=== PATIENT | female | born 1990 | race Caucasian/White ===

== ENCOUNTER 2018-03-01 15:56 | Outpatient (REF) | payer MEDICAID, SELFPAY ==
--- NOTE | 2018-03-01 15:00 | PAPFT_PTH ---
PATIENT: Heather Glez LOC: [facility] U#:[id number] AGE/SX: 27/F ROOM: RE03/01/[address]: SHANON Pandya : 1990 BED: DIS: 03/01/2018 SPEC #: [id number] RECD: 03/02/18 12:59 STATUS: MYRTLE REQ #: [id number] ANDRZEJ: 03/01/18 15:[address]: Sherri Langston DEPT: [facility] Cytology RECD BY: Daniela Morales ENTERED: 03/02/18 12:59 SP TYPE: PAPFT OTHR DR: Unknown,Unknown Tissues: 1 - CX/ENDOCX FOR PAP SMEARS Procedures: PAP THIN PREP/UVM Screening Comments: [id number]
[2018-03-03 14:47] LABS: Chlamydia Result Negative; GC Result Negative; Specimen Description CERVIX
== END 2018-03-01 16:16 ==
LOC: LBN 15:56
PROVIDERS: Visit Provider Nurse Practitioner Family
DX: Z11.3 Encounter for screening for infections with a predominantly sexual mode of transmission (principal); Z12.4 Encounter for screening for malignant neoplasm of cervix
CPT/HCPCS: 87491; 87591; 88142

== ENCOUNTER 2019-02-09 13:33 | Outpatient (REF) | payer OTHER, SELFPAY | END 2019-02-09 13:53 | LOC: NCHCN 13:33 | PROVIDERS: PCP Nurse Practitioner Family; Visit Provider Nurse Practitioner Family | DX: J06.9 Acute upper respiratory infection, unspecified (principal) | CPT/HCPCS: 87070 ==

== ENCOUNTER 2020-05-22 14:20 | Outpatient (REF) | payer OTHER, SELFPAY ==
--- NOTE | 2020-05-22 13:45 | PAPFT_PTH ---
PATIENT: Heather Glez LOC: [facility] U#:[id number] AGE/SX: 29/F ROOM: RE05/22/[address]: SHANON Pandya : 1990 BED: DIS: 05/22/2020 SPEC #: [id number] RECD: 05/22/20 18:14 STATUS: MYRTLE REQ #: [id number] ANDRZEJ: 05/22/20 13:[address]: Sherri Langston DEPT: [facility] Cytology RECD BY: aDniela Morales ENTERED: 05/22/20 18:14 SP TYPE: PAPFT OTHR DR: Raya Morse APRN Tissues: 1 - CX/ENDOCX FOR PAP SMEARS Procedures: PAP THIN PREP/UVM Screening HPV DNA PROBE Comments: [id number]
== END 2020-05-22 14:40 ==
LOC: LBN 14:20
PROVIDERS: PCP Nurse Practitioner; Visit Provider Nurse Practitioner Family
DX: Z12.4 Encounter for screening for malignant neoplasm of cervix (principal); Z11.51 Encounter for screening for human papillomavirus (HPV)
CPT/HCPCS: 88142; 87624

== ENCOUNTER 2020-05-23 02:50 | Outpatient (CLI) | payer OTHER, SELFPAY ==
[2020-05-27 14:35] LABS: Syphilis Total Ab w/Reflex Reactive (Nonreactive)
[2020-05-28 10:20] LABS: RPR Screen w/Reflex Nonreactive (Nonreactive)
[2020-05-28 15:02] LABS: Syphilis Ab, TP-PA Positive (Negative)
== END 2020-05-23 03:10 ==
PROVIDERS: PCP Nurse Practitioner; Visit Provider Nurse Practitioner Family
DX: Z11.3 Encounter for screening for infections with a predominantly sexual mode of transmission (principal)
CPT/HCPCS: 0064U; 36415; 86780

== ENCOUNTER 2020-07-06 19:47 | Outpatient (REF) | payer OTHER, SELFPAY ==
[2020-07-08 15:30] LABS: COVID-19 RT-PCR UVMMC Result Negative (Negative)
== END 2020-07-06 19:48 | disposition home or self-care (01) ==
LOC: LBN 19:47
PROVIDERS: PCP Nurse Practitioner; Visit Provider Nurse Practitioner Adult Health
DX: Z20.822 Contact with and (suspected) exposure to COVID-19 (principal)
CPT/HCPCS: U0003

== ENCOUNTER 2021-01-15 14:19 | Outpatient (CLI) | payer MEDICAID, SELFPAY ==
--- NOTE | 2021-01-15 14:15 | RT.EKG_ITS ---
APPROVED REPORT Exam: Resting ECG Reason for Exam: chronic stimulants Patient Location: O HR:102 bpm ECG Measurements Heart Rate 102 AXIS AK 146 P 54 QRSd 72 QRS 73 QT 334 T 32 QTc 436 Conclusion Sinus tachycardia...rate> 99 Normal Electrocardiogram
== END 2021-01-15 14:20 | disposition home or self-care (01) ==
LOC: DI.KIM 14:20
PROVIDERS: PCP Nurse Practitioner; Visit Provider Nurse Practitioner
DX: F11.20 Opioid dependence, uncomplicated (principal); F17.210 Nicotine dependence, cigarettes, uncomplicated; F98.8 Other specified behavioral and emotional disorders with onset usually occurring in childhood and adolescence

== ENCOUNTER 2021-03-15 02:13 | Outpatient (CLI) | payer MEDICAID, SELFPAY ==
[2021-03-15 12:09] LABS: HCT 43.4 % (36.0-46.0); HGB 14.6 g/dL (11.2-15.7); MCH 32.4 pg (27.0-33.0); MCHC 33.6 % (32.0-36.0); MCV 96.4 fL (80-95); MPV 7.9 fL (8.0-11.0); Platelet Count 345 10^3/uL (130-400); RDW 12.4 % (11.7-14.6); RDW-SD 43.9 fL; WBC 10.13 10^3/uL (4.4-10.8)
[2021-03-15 13:07] LABS: ALT 25 U/L (14-59); AST 12 U/L (15-37); Albumin 4.1 g/dL (3.4-5.0); Alkaline Phosphatase 62 U/L (46-116); Anion Gap 9.9 mmol/L (3-11); BUN 13 mg/dL (7-18); Bilirubin, Total 0.5 mg/dL (0.2-1.0); CO2 29.1 mmol/L (21.0-32.0); Calcium 9.4 mg/dL (8.5-10.1); Calculated LDL 69 mg/dL (<100); Chloride 102 mmol/L (98-107); Cholesterol 177 mg/dL (<200); Glucose 90 mg/dL (74-106); HDL Cholesterol 93 mg/dL (40-60); Potassium 3.9 mmol/L (3.5-5.1); Sodium 141 mmol/L (136-145); Total Protein 7.4 g/dL (6.4-8.2); Triglyceride 76 mg/dL (<150)
== END 2021-03-15 02:14 | disposition home or self-care (01) ==
LOC: LBO 02:13
PROVIDERS: PCP Nurse Practitioner; Visit Provider Nurse Practitioner
DX: F98.8 Other specified behavioral and emotional disorders with onset usually occurring in childhood and adolescence (principal); Z86.19 Personal history of other infectious and parasitic diseases; Z13.220 Encounter for screening for lipoid disorders
CPT/HCPCS: 36415; 80053; 80061; 85027

== ENCOUNTER 2022-06-10 13:01 | Outpatient (CLI) | payer MEDICAID, SELFPAY ==
--- NOTE | 2022-06-10 13:00 | RT.EKG_ITS ---
APPROVED REPORT Exam: Resting ECG Reason for Exam: pt on adderall Patient Location: O HR:90 bpm ECG Measurements Heart Rate 90 AXIS UT 165 P 76 QRSd 77 QRS 78 QT 340 T 43 QTc 416 Conclusion Sinus rhythm...normal P axis, V-rate 50- 99 Normal Electrocardiogram
== END 2022-06-10 13:02 | disposition home or self-care (01) ==
LOC: DI.KIM 13:02
PROVIDERS: PCP Nurse Practitioner; Visit Provider Nurse Practitioner
DX: Z51.81 Encounter for therapeutic drug level monitoring (principal)
CPT/HCPCS: 93010

== ENCOUNTER 2022-07-17 12:43 | Outpatient (CLI) | payer MEDICAID, SELFPAY ==
--- NOTE | 2022-07-17 11:45 | DI.US_ITS ---
Exam(s) US OB 1ST TRIMESTER EXAM: US OB 1ST TRIMESTER CLINICAL HISTORY: pelvic pain, R10.2. COMPARISON: No exams were available for comparison TECHNIQUE: Transabdominal Transvaginal first trimester obstetrical ultrasound performed. FINDINGS: There is a round fluid collection seen within the endometrial canal which may represent a gestational sac. It measures 7 mm. This is too small/too early for dating measurements. The uterus measures 10.3 long by 4.3 AP by 4.9 transverse cm. There does appear to be a 2 x 1.9 x 1. 7 cm uterine fibroid present. The ovaries were not visualized on this examination. No suspicious adnexal masses are seen. The right lower quadrant was evaluated sonographically. No sonographic evidence of an appendicitis i s seen. IMPRESSION: 1. 7 mm fluid collection in the within the endometrial canal which may represent a very early pregnan cy. This is too small/too early for dating measurements. Follow-up ultrasound and beta HCG levels i s recommended to evaluate for viable . 2. No sonographic evidence of an appendicitis. DATA REPOSITORY:
[2022-07-17 13:46] LABS: HCG Quant, Pregnancy 3256 mIU/mL (1-3)
== END 2022-07-17 12:44 | disposition home or self-care (01) ==
LOC: LBO 12:44
PROVIDERS: PCP Nurse Practitioner; Visit Provider Advanced Practice Midwife
DX: R10.2 Pelvic and perineal pain (principal); D25.9 Leiomyoma of uterus, unspecified; O26.891 Other specified pregnancy related conditions, first trimester; Z3A.01 Less than 8 weeks gestation of pregnancy
CPT/HCPCS: 36415; 86850; 86900; 86901; 76801; 84702

== ENCOUNTER 2022-07-21 02:58 | Outpatient (CLI) | payer MEDICAID, SELFPAY ==
[2022-07-21 11:29] LABS: HCG Quant, Pregnancy 10710 mIU/mL (1-3)
== END 2022-07-21 02:59 | disposition home or self-care (01) ==
LOC: LBO 02:58
PROVIDERS: Advanced Practice Midwife; PCP Nurse Practitioner; Visit Provider Advanced Practice Midwife
DX: R10.2 Pelvic and perineal pain (principal); Z34.91 Encounter for supervision of normal pregnancy, unspecified, first trimester
CPT/HCPCS: 36415; 84702

== ENCOUNTER 2022-09-01 01:52 | Outpatient (CLI) | payer MEDICAID, SELFPAY ==
[2022-09-01 11:58] LABS: Panorama Kit Sent via Fed Ex
[2022-09-01 12:07] LABS: Abs Immature Grans 0.05 10^3/uL (0.0-0.06); Absolute Basophil Count 0.08 10^3/uL (0.0-0.2); Absolute Eosinophil Count 0.29 10^3/uL (0.0-0.7); Absolute Monocyte Count 0.48 10^3/uL (0.1-0.8); Basophils % 0.6; Eosinophils % 2.3; HCT 39.2 % (36.0-46.0); HGB 13.5 g/dL (11.2-15.7); Immature Grans % 0.4; Lymphocytes % 20.5; MCH 31.9 pg (27.0-33.0); MCHC 34.4 % (32.0-36.0); MCV 93 fL (80-95); MPV 7.7 fL (8.0-11.0); Monocytes % 3.8; Neutrophils % 72.4; Platelet Count 344 10^3/uL (130-400); RBC 4.23 10^6/uL (3.93-5.22); RDW 13.3 % (11.7-14.6); RDW-SD 45.4 fL; WBC 12.56 10^3/uL (4.4-10.8)
[2022-09-01 12:08] LABS: Absolute Lymphocyte Count 2.57 10^3/uL (1.2-3.4); Absolute Neutrophil Count 9.09 10^3/uL (1.2-6.7)
[2022-09-01 12:46] LABS: Glucose,1 Hr (Glucola) 115 mg/dL (80-140)
[2022-09-02 09:11] LABS: HIV-1/2 Ag & Ab Screen Negative (Negative)
[2022-09-02 09:19] LABS: Hepatitis B Surface Ag Negative (Negative)
[2022-09-02 10:21] LABS: Hepatitis C Ab w Rflx HCV PCR Reactive (Negative)
[2022-09-02 11:44] LABS: Rubella IgG Ab (UVM) Positive (See Note)
[2022-09-03 11:16] LABS: HCV RNA Qualitative Undetected (Undetected)
[2022-09-03 12:54] LABS: Syphilis IgG w/Reflex Reactive (Nonreactive)
[2022-09-04 11:57] LABS: RPR Screen w/Reflex Negative (Negative)
[2022-09-04 16:58] LABS: Syphilis Ab, TP-PA Positive (Negative)
[2022-09-09 16:24] LABS: Result Summary NEGATIVE; Specimen WB Whole Blood
== END 2022-09-01 01:53 | disposition home or self-care (01) ==
LOC: LBO 01:52
PROVIDERS: Advanced Practice Midwife; PCP Nurse Practitioner; Visit Provider Advanced Practice Midwife
DX: Z34.91 Encounter for supervision of normal pregnancy, unspecified, first trimester (principal)
CPT/HCPCS: 0064U; 36415; 81220; 81222; 82950; 86780; 86803; 86850; 86900; 86901; 87340; 87389; 87522; 85025; 86762

== ENCOUNTER 2022-09-01 12:35 | Outpatient (REF) | payer MEDICAID, SELFPAY ==
[2022-09-01 13:31] LABS: *AMPHETAMINES SCREEN URINE Negative (Negative); *BARBITURATES SCREEN URINE Negative (Negative); *BENZODIAZEPINES SCREEN URINE Negative (Negative); Cannabinoids THC Positive (Negative); Cocaine Screen,Urine Negative (Negative); METHADONE URINE SCREEN Negative (Negative); OPIATES URINE SCREEN Negative (Negative)
[2022-09-01 13:33] LABS: Tricyclic Antidepressants Negative (Negative)
[2022-09-02 13:41] LABS: Chlamydia Result Negative (Negative); GC Result Negative (Negative)
[2022-09-06 13:58] LABS: Buprenorphine 14.6 ng/mL (Cutoff: 5.0); Norbuprenorphine 70.3 ng/mL (Cutoff: 2.5)
== END 2022-09-01 12:36 | disposition home or self-care (01) ==
LOC: LBN 12:35
PROVIDERS: PCP Nurse Practitioner; Visit Provider Advanced Practice Midwife
DX: Z34.90 Encounter for supervision of normal pregnancy, unspecified, unspecified trimester (principal)
CPT/HCPCS: 80307; 80348; 87491; 87591; 87086

== ENCOUNTER 2022-11-04 01:18 | Outpatient (CLI) | payer MEDICAID, SELFPAY ==
--- NOTE | 2022-11-04 07:00 | DI.US_ITS ---
Exam(s) US OB 2-3 TRIMESTER EXAM: US OB 2-3 TRIMESTER CLINICAL HISTORY: anatomy,z34.90. TECHNIQUE: Transabdominal obstetrical ultrasound was performed. COMPARISON: US POCUS EXAM from 08/07/2022 FINDINGS: There is a single viable intrauterine gestation with cardiac activity identified-154 bpm. Amniotic fluid: There is a normal amount of amniotic fluid. Placental location: The placenta is posterior fundal, grade 1,with no evidence of placenta previa.Dis tance from tip of placenta to the internal cervical os is 5 cm on today's study. ANATOMY: Fetus exhibited variable position during today's study. A 3 vessel umbilical cord is seen. There are no obvious abnormalities of the spinal column evident. There is no obvious abnormal ity of the anterior abdominal wall. stomach and urinary bladder are identified and there is no evidence of hydronephrosis. No abnormalities of the upper lip region are identified. No evidence of choroid plexus cysts i n the brain. Apparently not able to obtain adequate cardiac images on today's study. Dating parameters place this at approximately 20 weeks and 4 days gestational age. BPD measures 20 weeks and 0 days HC measures 20 weeks and 3 days AC measures 21 weeks and 0 days FL measures 20 weeks and 6 days Estimated weight is 381 gm-0 pounds, 13 ounces. Fetus is at the 28th percentile on the Hadlock scale. IMPRESSION:: Single viable intrauterine gestation which is approximately 20 weeks and 4 days gestati onal age, implying an VIKY of March 20, 2023. There are no obvious anomalies evident on today's study. The placenta is posterior fundal with no evidence of placenta previa. There is a normal amount of amniotic fluid. Patient is returning on 11/07/2022 for repeat imaging to complete the survey study DATA REPOSITORY:
== END 2022-11-04 01:38 ==
LOC: DI 01:18
PROVIDERS: PCP Nurse Practitioner; Visit Provider Obstetrics & Gynecology
DX: Z34.92 Encounter for supervision of normal pregnancy, unspecified, second trimester (principal)
CPT/HCPCS: 76805

== ENCOUNTER 2022-11-12 01:54 | Outpatient (CLI) | payer MEDICAID, SELFPAY ==
--- NOTE | 2022-11-12 | DI.US_ITS ---
Exam(s) US OB F/U FACIAL/LVOT/RVOT EXAM: US OB F/U FACIAL/LVOT/RVOT CLINICAL HISTORY: F/U SURVEY, RVOT/LVOT/4 CH HEART/DORSIFLEX LOW EXT, VENTRICLE. TECHNIQUE: Transabdominal obstetrical ultrasound performed. COMPARISON: US US OB 2-3 TRIMESTER from 11/04/2022 FINDINGS: Number of fetuses: 1 position: VARIED Placental location: POSTERIOR No evidence of previa. survey: The four-chamber heart, left ventricular and right ventricular outflow tracts were all visualized and are unremarkable. The right and left tibias and fibula were visualized and are unrema rkable. Heart Rate: 149 bpm IMPRESSION: 1. Single live intrauterine gestation as above. 2. The four-chamber heart, left and right ventricular outflow tracks revision lies and are unremarkab le. 3. Both the right and left tibia and fibula were visualized and are unremarkable. 4. This completes the anatomic survey. DATA REPOSITORY:
== END 2022-11-12 02:14 ==
LOC: DI 01:54
PROVIDERS: PCP Nurse Practitioner; Visit Provider Obstetrics & Gynecology
DX: Z34.92 Encounter for supervision of normal pregnancy, unspecified, second trimester (principal)
CPT/HCPCS: 76815

== ENCOUNTER 2022-12-22 02:37 | Outpatient (CLI) | payer MEDICAID, SELFPAY ==
[2022-12-22 09:31] LABS: HCT 33.3 % (36.0-46.0); HGB 11.6 g/dL (11.2-15.7); MCH 32.9 pg (27.0-33.0); MCHC 34.8 % (32.0-36.0); MCV 94 fL (80-95); MPV 7.6 fL (8.0-11.0); Platelet Count 257 10^3/uL (130-400); RBC 3.53 10^6/uL (3.93-5.22); RDW 13.6 % (11.7-14.6); RDW-SD 46.9 fL; WBC 13.78 10^3/uL (4.4-10.8)
[2022-12-22 09:43] LABS: Glucose,1 Hr (Glucola) 161 mg/dL (80-140)
[2022-12-22 10:20] LABS: ALT 17 U/L (14-59); AST 11 U/L (15-37); Albumin 2.4 g/dL (3.4-5.0); Alkaline Phosphatase 74 U/L (46-116); Anion Gap 7.2 mmol/L (3-11); BUN 5 mg/dL (7-18); Bilirubin, Total 0.2 mg/dL (0.2-1.0); CO2 26.8 mmol/L (21.0-32.0); CREATININE 0.7 mg/dL (0.55-1.02); Calcium 8.4 mg/dL (8.5-10.1); Chloride 102 mmol/L (98-107); Estimated GFR 117.77 (mL/min/1.73m2); Glucose 145 mg/dL (74-106); Potassium 3.1 mmol/L (3.5-5.1); Sodium 136 mmol/L (136-145); Total Protein 5.9 g/dL (6.4-8.2)
== END 2022-12-22 02:38 | disposition home or self-care (01) ==
LOC: LBO 02:37
PROVIDERS: PCP Nurse Practitioner; Visit Provider Obstetrics & Gynecology Gynecology
DX: Z34.93 Encounter for supervision of normal pregnancy, unspecified, third trimester (principal); R76.8 Other specified abnormal immunological findings in serum
CPT/HCPCS: 36415; 80053; 82950; 85027

== ENCOUNTER 2022-12-31 02:39 | Outpatient (CLI) | payer MEDICAID, SELFPAY ==
[2022-12-31 09:10] LABS: Glucose 1 Hour 148 mg/dL
[2022-12-31 11:06] LABS: Glucose 3 Hour 91 mg/dL
== END 2022-12-31 02:40 | disposition home or self-care (01) ==
LOC: LBO 02:39
PROVIDERS: PCP Nurse Practitioner; Visit Provider Obstetrics & Gynecology Gynecology
DX: R73.09 Other abnormal glucose (principal)
CPT/HCPCS: 36415; 82951

== ENCOUNTER 2023-01-09 15:08 | Observation (INO) | payer MEDICAID, SELFPAY ==
[2023-01-09 15:35] VITALS: BP 108/67; PULSE 64; TEMP 36.4
[2023-01-09 15:53] LABS: HGB 12.2 g/dL (11.2-15.7); MCH 32.2 pg (27.0-33.0); MCHC 33.9 % (32.0-36.0); MCV 95 fL (80-95); MPV 7.7 fL (8.0-11.0); Platelet Count 283 10^3/uL (130-400); RBC 3.79 10^6/uL (3.93-5.22); RDW 13.4 % (11.7-14.6); RDW-SD 46.3 fL; WBC 11.74 10^3/uL (4.4-10.8)
[2023-01-09 16:01] VITALS: TEMP 36.4
[2023-01-09] MEDS: Calcium Carbonate *TUMS* 500 MG CHEW 1000 MG PO (16:01)
[2023-01-09 16:05] VITALS: BP 108/85; PULSE 64; RESP 22; TEMP 36.4; O2SAT 98
[2023-01-09 16:08] VITALS: BP 108/55; PULSE 65
[2023-01-09 16:47] LABS: ALT 117 U/L (14-59); AST 117 U/L (15-37); Albumin 2.6 g/dL (3.4-5.0); Alkaline Phosphatase 115 U/L (46-116); Anion Gap 7.5 mmol/L (3-11); BUN 6 mg/dL (7-18); Bilirubin, Total 1.1 mg/dL (0.2-1.0); CO2 29.5 mmol/L (21.0-32.0); CREATININE 0.6 mg/dL (0.55-1.02); Calcium 9.4 mg/dL (8.5-10.1); Chloride 102 mmol/L (98-107); Estimated GFR 121.47 (mL/min/1.73m2); Glucose 111 mg/dL (74-106); Potassium 4.1 mmol/L (3.5-5.1); Sodium 139 mmol/L (136-145); Total Protein 6.5 g/dL (6.4-8.2); Uric Acid 3.5 mg/dL (2.6-6.0)
[2023-01-09 16:58] LABS: COMMENT (LAB VIEW ONLY) 95.31 mg/dL; Prot/Crea Ur Ratio 0.19
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
[2023-01-09 18:10] LABS: Lab Add On Test DONE
[2023-01-09 18:18] LABS: Amylase 44 U/L (25-115); Lipase 37 U/L (16-77)
== END 2023-01-09 17:10 | disposition home or self-care (01) ==
LOC: OBS 15:28 → BCD 01-12 12:23
PROVIDERS: Admitting Provider Obstetrics & Gynecology Gynecology; PCP Nurse Practitioner; Visit Provider Obstetrics & Gynecology Gynecology
DX: O26.893 Other specified pregnancy related conditions, third trimester (principal); R10.9 Unspecified abdominal pain; R79.89 Other specified abnormal findings of blood chemistry; Z3A.30 30 weeks gestation of pregnancy; O99.323 Drug use complicating pregnancy, third trimester; F11.90 Opioid use, unspecified, uncomplicated; O99.343 Other mental disorders complicating pregnancy, third trimester; F99 Mental disorder, not otherwise specified; O34.211 Maternal care for low transverse scar from previous cesarean delivery; N85.8 Other specified noninflammatory disorders of uterus; F41.8 Other specified anxiety disorders; G56.03 Carpal tunnel syndrome, bilateral upper limbs; O99.353 Diseases of the nervous system complicating pregnancy, third trimester; B19.20 Unspecified viral hepatitis C without hepatic coma; O98.413 Viral hepatitis complicating pregnancy, third trimester; O99.283 Endocrine, nutritional and metabolic diseases complicating pregnancy, third trimester; E28.2 Polycystic ovarian syndrome; O99.513 Diseases of the respiratory system complicating pregnancy, third trimester; J45.909 Unspecified asthma, uncomplicated; O99.333 Smoking (tobacco) complicating pregnancy, third trimester; F17.210 Nicotine dependence, cigarettes, uncomplicated
CPT/HCPCS: 80053; 83690; 85027; 86850; 86900; 86901; 82150; 82565; 84156; 84550; G0378

== ENCOUNTER 2023-01-15 04:06 | Outpatient (CLI) | payer MEDICAID, SELFPAY ==
[2023-01-15 15:12] LABS: HCT 35.7 % (36.0-46.0); HGB 12.2 g/dL (11.2-15.7); MCH 32.5 pg (27.0-33.0); MCHC 34.2 % (32.0-36.0); MCV 95 fL (80-95); MPV 7.7 fL (8.0-11.0); Platelet Count 263 10^3/uL (130-400); RBC 3.75 10^6/uL (3.93-5.22); RDW 13.3 % (11.7-14.6); RDW-SD 46.3 fL; WBC 11.43 10^3/uL (4.4-10.8)
[2023-01-15 15:44] LABS: ALT 77 U/L (14-59); AST 24 U/L (15-37); Albumin 2.6 g/dL (3.4-5.0); Alkaline Phosphatase 112 U/L (46-116); Anion Gap 9.5 mmol/L (3-11); BUN 5 mg/dL (7-18); Bilirubin, Total 0.3 mg/dL (0.2-1.0); CO2 26.5 mmol/L (21.0-32.0); CREATININE 0.7 mg/dL (0.55-1.02); Calcium 8.7 mg/dL (8.5-10.1); Chloride 100 mmol/L (98-107); Estimated GFR 117.04 (mL/min/1.73m2); Glucose 90 mg/dL (74-106); Potassium 3.6 mmol/L (3.5-5.1); Sodium 136 mmol/L (136-145); Total Protein 6.4 g/dL (6.4-8.2)
== END 2023-01-15 04:07 | disposition home or self-care (01) ==
LOC: LBO 04:07
PROVIDERS: PCP Nurse Practitioner; Visit Provider Obstetrics & Gynecology Gynecology
DX: O26.893 Other specified pregnancy related conditions, third trimester (principal); R10.9 Unspecified abdominal pain; R79.89 Other specified abnormal findings of blood chemistry; Z3A.31 31 weeks gestation of pregnancy
CPT/HCPCS: 36415; 80053; 85027

== ENCOUNTER 2023-02-16 10:35 | Outpatient (REF) | payer MEDICAID, SELFPAY ==
[2023-02-16 12:00] LABS: *AMPHETAMINES SCREEN URINE Positive (Negative); *BARBITURATES SCREEN URINE Negative (Negative); *BENZODIAZEPINES SCREEN URINE Negative (Negative); Cannabinoids THC Positive (Negative); Cocaine Screen,Urine Negative (Negative); METHADONE URINE SCREEN Negative (Negative); OPIATES URINE SCREEN Negative (Negative); Tricyclic Antidepressants Negative (Negative)
[2023-02-20 13:55] LABS: Buprenorphine 19.7 ng/mL (Cutoff: 5.0); Norbuprenorphine 212.9 ng/mL (Cutoff: 2.5)
== END 2023-02-16 10:36 | disposition home or self-care (01) ==
LOC: LBN 10:35
PROVIDERS: PCP Nurse Practitioner; Visit Provider Obstetrics & Gynecology
DX: Z34.93 Encounter for supervision of normal pregnancy, unspecified, third trimester (principal); Z36.85 Encounter for antenatal screening for Streptococcus B; Z3A.36 36 weeks gestation of pregnancy
CPT/HCPCS: 80307; 80348; 87081

== ENCOUNTER 2023-03-04 21:12 | Inpatient (IN) | payer MEDICAID, SELFPAY ==
[2023-03-04 21:35] VITALS: BP 102/67; PULSE 100
[2023-03-04] MEDS: Lactated Ringers 1,000 ML 200 ML IV (21:59)
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
[2023-03-04] MEDS: AZITHROMYCIN 500 MG in Normal Saline 250 ML 250 MG IVPB (22:21)
[2023-03-04 22:23] VITALS: TEMP 36.8
[2023-03-04 22:24] LABS: Source Nasal/Nares
[2023-03-04 22:25] LABS: HCT 39.3 % (36.0-46.0); HGB 13.5 g/dL (11.2-15.7); MCH 32.4 pg (27.0-33.0); MCHC 34.4 % (32.0-36.0); MCV 94 fL (80-95); MPV 8.1 fL (8.0-11.0); Platelet Count 273 10^3/uL (130-400); RBC 4.17 10^6/uL (3.93-5.22); RDW 14.2 % (11.7-14.6); WBC 18.35 10^3/uL (4.4-10.8)
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
[2023-03-04] MEDS: Ondansetron 4 MG/2 ML VIAL (22:41)
[2023-03-04 22:59] LABS: COVID-19 PCR Negative (Negative)
[2023-03-04] MEDS: ceFAZolin 2 GM/50 ML BAG IVPB (23:07)
--- NOTE | 2023-03-04 23:28 | PLAC_PTH ---
PATIENT: Heather Glez LOC: OBS U#:[id number] AGE/SX: 32/F ROOM: OBS.304 RE03/05/[address]: Bev Alexander DO : 1990 BED: A DIS: 03/07/2023 SPEC #: [id number] RECD: 03/05/23 12:42 STATUS: MYRTLE REQ #: [id number] ANDRZEJ: 03/04/23 23:[address]: Bev Alexander DEPT: Surgical Specimen RECD BY: Daniela Morales ENTERED: 03/05/23 12:43 SP TYPE: PLAC OTHR DR: Raya Morse APRN Tissues: 1 - PLACENTA (3RD TRIMESTER) 2 - FALLOPIAN TUBE (STERILIZATION) 3 - FALLOPIAN TUBE (STERILIZATION) Procedures: GROSS AND MICRO LEVEL 2 GROSS AND MICRO LEVEL 5 Comments: [id number]
[2023-03-04] MEDS: Tranexamic Acid 1,000 MG/10 ML VIAL 1000 MG (23:36)
[2023-03-05] VITALS (47 sets, daily range): BP systolic 86–148; BP diastolic 47–91; PULSE 62–93; RESP 13–18; TEMP 36.4–37.2; O2SAT 93–100
--- NOTE | 2023-03-05 00:28 | PDOC.OPNB_ITS ---
Date of service: 03/05/23 Time of Service: 00:28 Operative Note Operative Note Delivery Method: Unscheduled STAT: No and Repeat Previous LT Incision: Yes DATE OF PROCEDURE: 03/05/23 PRE-OP DIAGNOSES: 38 4/7, prior c/s, undesired fertility, labor POST-OP DIAGNOSES: same (Delivery of a viable female ) PROCEDURE: Repeat low-transverse section with bilateral salpingectomy SURGEON: Bev Alexander [employer] Developing Machine Operator: Galen Rodriguez Anesthesia: GETA and spinal Estimated blood loss (mL): 800 Pathology: other (1. Placenta 2. Left fallopian tube 3. Right fallopian tube 4. Cord blood gases 5. Cord blood sample 6. Umbilical cord for toxicology) Complications: None Patient was transported to: PACU Patient's condition: stable Indications: at 38-4/7 weeks gestation, prior section, Active labor Findings: Normal-appearing uterus, fallopian tubes, ovaries. Delivery of a viable female . Meconium stained fluid. Procedure Description: Patient presented to the center in early active labor kamran approximately every 3 minutes. She was noted at that time to be 1 cm and 70% effaced. With her amount of discomfort, regular contractions, and cervical exam, the decision was made to proceed to the OR for her repeat section. This was previously scheduled shortly after 39 weeks. Full informed consent was obtained for her repeat section, and bilateral salpingectomy. She was taken the operating suite with an IV running where she was placed in the seated position. Spinal anesthesia was administered and she was placed in the dorsal supine position with leftward tilt. With testing of her spinal, she had no pain relief. In light of this, she underwent general anesthesia via endotracheal intubation. When patient was appropriately anesthetized, Pfannenstiel skin incision was made carried down to the underlying fascia which was nicked in the midline and fascial incision extended laterally. The rectus muscles were split in the midline and peritoneum identified and entered. There was noted to be adhesions of the omentum to the anterior abdominal wall which were bluntly dissected away. The abdominal incision was extended bluntly and the bladder blade inserted. Scalpel was used to incise the lower uterine segment and extended bluntly laterally. There was artificial rupture of membranes for heavily meconium stained fluid. The vertex was delivered through the incision without difficulty. There was no evidence of nuchal cord. Shoulders followed with ease. Three-vessel cord was noted clamped x2 and the female was handed off to the waiting boom worker. At this point cord blood sample and cord blood gases were obtained. A portion of the cord will be sent for toxicology. The placenta delivered spontaneously and was noted to be intact. At this point the uterus was exteriorized and cleared of all clot and debris. There was a modest amount of uterine a tonicity. Patient received Pitocin intravenously, and 10 units of Pitocin IM directly into the uterus. She also received 1 dose of TXA. The uterus was then firm and uterine incision was closed using 0 Monocryl suture in a running locked fashion followed by a second layer of imbricating stitch. The uterine incision was inspected and noted to be hemostatic. Attention was turned to the right fallopian tube which was elevated and cautery transected from the fimbriated end to the implantation of the uterus. A similar procedure was carried out on the left fallopian tube. Pedicles were noted to be hemostatic. At this point the uterus was returned to the abdomen and the abdomen irrigated with copious amounts of normal saline. The uterine incision was then inspected and noted to be hemostatic. All surfaces and peritoneal edges were inspected and hemostatic. At this point the fascial incision was closed using 0 Vicryl suture in a running fashion. Subcutaneous tissue was irrigated with copious amounts of normal saline. All small vessels that were not hemostatic were cauterized and hemostatic. 3-0 Vicryl used to reapproximate the subcutaneous space in a simple interrupted fashion. The skin edge was then reapproximated with 4-0 undyed Monocryl. Mepilex dressing was placed. Patient awoke from anesthesia without difficulty. She was taken to the postanesthesia care unit in stable condition with a Lucio catheter draining barbie r yellow urine. Complications: None apparent Findings: Delivery of a viable female infant. Meconium stained fluid. Normal- appearing tubes, ovaries, uterus. EBL: 800 mL Fluids: Crystalloid per anesthesia Pathology: 1. Placenta 2. Left fallopian tube 3. Right fallopian tube 4. Cord blood gases 5. Cord blood sample 6. Umbilical cord for toxicology [place] Infant Gender: Male
[2023-03-05] MEDS: HYDROmorphone 2 MG/ML SYR IVP ×2 (00:47→00:59)
--- NOTE | 2023-03-05 01:08 | W.ANESPOSTOP ---
Postoperative Evaluation Date, Time and Location Date Performed: 03/05/23 Time Performed: 01:09 Patient Location: PACU Vital Signs Most Recent Imported Vital Signs: Most Recent Vital Signs Temp Pulse Resp BP Pulse Ox 36.5 C 62 15 91/63 L 98 03/05/23 00:52 03/05/23 00:52 03/05/23 00:52 03/05/23 00:52 03/05/23 00:52 Pain Score Most Recent Pain Score: Most Recent Pain Score Pain Level 6 03/05/23 00:52 Assessment Mental Status: Awake (Alert & Oriented to Patient Baseline) Airway and Respiratory Function: Patent airway with normal (patient baseline) respiratory exam (Dry intermittently productive cough) Cardiovascular Function: Hemodynamically Stable Hydration Status: Adequately Hydrated Nausea & Vomiting: No Nausea or Vomiting Pain: Pain is tolerable per patient (6/10 when coughing, better when bracing with pillow, better now that pain addressed with dilaudid. ) Peripheral Nerve Block: Patient did not receive a nerve block Postoperative Comments:: Patient with full CMS in BLE. Tonight was patients second failed spinal. Tonighs spinal was straightforward and routine with good CSF flow both for swirl pre and post injection. Minimal sensory loss which then returned, no motor. I did discuss future spinals with the patient and cautioned that they might not be the optimal anesthetic plan for her. I did discuss that I would note this conversation in this record.
[2023-03-05] MEDS: Ketorolac 30 MG/ML VIAL IVP ×4 (01:38→20:31)
[2023-03-05] MEDS: diphenhydrAMINE 50 MG/ML VIAL 25 MG IVP (02:34)
[2023-03-05] MEDS: oxyCODONE 5 mg/Acetaminophen 325 mg TAB PO (03:52)
[2023-03-05] MEDS: Normal Saline Flush 10 ML SYR IVP ×2 (08:45→13:55)
[2023-03-05] MEDS: Amphet Asp/Amphet/D-Amphet 10 MG TAB 20 MG PO ×3 (08:51→17:23)
[2023-03-05] MEDS: Docusate Sodium 100 MG CAP PO (08:51)
[2023-03-05] MEDS: Buprenorphine/Naloxone 8 mg/2 mg FILM 1 EACH SL (08:53)
[2023-03-05 11:01] LABS: Abs Immature Grans 0.08 10^3/uL (0.0-0.06); Absolute Basophil Count 0.04 10^3/uL (0.0-0.2); Absolute Monocyte Count 0.67 10^3/uL (0.1-0.8); Basophils % 0.3; Eosinophils % 0.3; HGB 11.4 g/dL (11.2-15.7); Immature Grans % 0.6; Lymphocytes % 19.7; MCH 32.9 pg (27.0-33.0); MCHC 34.5 % (32.0-36.0); MCV 95 fL (80-95); MPV 8.2 fL (8.0-11.0); Monocytes % 4.7; Neutrophils % 74.4; Platelet Count 240 10^3/uL (130-400); RBC 3.47 10^6/uL (3.93-5.22); RDW 14.3 % (11.7-14.6); RDW-SD 49.4 fL; WBC 14.29 10^3/uL (4.4-10.8)
[2023-03-05 11:02] LABS: Absolute Eosinophil Count 0.04 10^3/uL (0.0-0.7); Absolute Lymphocyte Count 2.82 10^3/uL (1.2-3.4); Absolute Neutrophil Count 10.63 10^3/uL (1.2-6.7)
--- NOTE | 2023-03-05 11:28 | W.PM.OBPNV1 ---
Date of service: 03/05/23 Time of Service: 11:28 Assessment and Plan Assessment and plan (1) Status post repeat low transverse section: Status: Acute Assessment and plan: Patient is postoperative day 1 status post repeat low transverse section with bilateral salpingectomy she is doing well this morning. Hemoglobin is stable. Vital signs are stable. Pain management will be her issue in light of the fact that she has poor pain tolerance. She will resume her Subutex this morning. All questions were answered. (2) Status post bilateral salpingectomy: Status: Acute (3) Opioid dependence on agonist therapy: Status: Acute Assessment and plan: Continue Subutex as per ESTER (4) Hepatitis C antibody positive in blood: Status: Acute (5) History of positive serological reaction for syphilis: Status: Acute Exam Physical Exam Vital signs: Temp Pulse Resp BP Pulse Ox 98.4 F 66 16 108/55 L 96 03/05/23 01:56 03/05/23 05:25 03/05/23 03:00 03/05/23 05:16 03/05/23 05:25 Results Hemoglobin/Hematocrit: Hgb 11.4 g/dL (11.2-15.7) D 03/05/23 10:52 Hct 33.0 % (36.0-46.0) L 03/05/23 10:52 Abnormal Lab Findings: Abnormal Labs 03/04/23 03/05/23 22:10 10:52 WBC 18.35 H 14.29 H RBC 3.47 L Hct 33.0 L Absolute Neutrophils 10.63 H
[2023-03-06 02:00] VITALS: BP 118/78; PULSE 71; RESP 18; TEMP 37.1
[2023-03-06] MEDS: Acetaminophen 325 MG TAB 650 MG PO ×3 (05:31→23:45)
[2023-03-06] MEDS: Ibuprofen 600 MG TAB PO ×3 (05:32→23:45)
--- NOTE | 2023-03-06 07:40 | W.PM.OBPNV1 ---
Date of service: 03/06/23 Time of Service: 07:41 Assessment and Plan Assessment and plan (1) Status post repeat low transverse section: Status: Acute Assessment and plan: POD1. rLTCS with bilateral salpingectomy. (2) Opioid dependence on agonist therapy: Status: Acute Subjective Subjective Interval history: POD1 repeat delivery with bilateral salpingectomy. Pain controlled with NSAIDs and Acetaminophen. Breast feeding successfully. Discussed her desire to return home with her daughter as soon as possible. Because of TAMMY will remain hospitalized for 5 days after delivery. Pt states that she understands the reasoning behind the requirement. Patient comments: Incisional pain (last night. Considered taking Percocet but decided against it.) and Tolerating diet Patient's Mood: She reports it as OK. Glad that her infant is doing well. baby status: Doing well, Nursing well and Strong Bonding Observed feeding status: Exclusively breast feeding Exam Physical Exam Vital signs: Temp Pulse Resp BP Pulse Ox 98.8 F 71 18 118/78 98 03/06/23 02:00 03/06/23 02:00 03/06/23 02:00 03/06/23 02:00 03/05/23 16:00 Vital Signs Reviewed: Yes Constitutional Constitutional: no acute distress Respiratory Exam Respiratory Exam: Normal Cardiovascular Exam Cardiovascular Exam: Normal Abdominal Exam Abdomen: Tender Comments: dressing over incision clean dry and intact. Fundal Exam Fundus: Below Umbilicus and Firm Rectal Exam Rectal Exam: Not Done Extremities Exam Extremity Exam: Normal Back/Spine/Pelvis Exam Back Exam: Normal Skin Exam Skin Exam: Normal Neurological Exam Neurological Exam: Normal Results Hemoglobin/Hematocrit: Hgb 11.4 g/dL (11.2-15.7) D 03/05/23 10:52 Hct 33.0 % (36.0-46.0) L 03/05/23 10:52 Abnormal Lab Findings: Abnormal Labs 03/04/23 03/05/23 22:10 10:52 WBC 18.35 H 14.29 H RBC 3.47 L Hct 33.0 L Absolute Neutrophils 10.63 H
[2023-03-06] MEDS: oxyCODONE 5 mg/Acetaminophen 325 mg TAB PO (09:25)
[2023-03-06] MEDS: Docusate Sodium 100 MG CAP PO (09:25)
[2023-03-06] MEDS: Amphet Asp/Amphet/D-Amphet 10 MG TAB 20 MG PO ×2 (09:25→15:33)
[2023-03-06] MEDS: Buprenorphine/Naloxone 8 mg/2 mg FILM 1 EACH SL (09:27)
[2023-03-06 09:40] VITALS: BP 111/69; PULSE 73; RESP 18; TEMP 36.8; O2SAT 96
[2023-03-06 16:15] VITALS: BP 114/82; PULSE 79; RESP 16; TEMP 36.7; O2SAT 99
[2023-03-06 21:47] VITALS: BP 118/82; PULSE 71; RESP 18; TEMP 37.2
[2023-03-07] MEDS: Buprenorphine/Naloxone 8 mg/2 mg FILM 1 EACH SL (08:09)
[2023-03-07] MEDS: Amphet Asp/Amphet/D-Amphet 10 MG TAB 20 MG PO ×2 (08:09→12:02)
[2023-03-07] MEDS: Acetaminophen 325 MG TAB 650 MG PO (08:10)
[2023-03-07] MEDS: Ibuprofen 600 MG TAB PO (08:10)
[2023-03-07] MEDS: Docusate Sodium 100 MG CAP PO (08:29)
[2023-03-07 08:34] VITALS: BP 124/80; PULSE 73; RESP 20; TEMP 37; O2SAT 99
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
[2023-03-07 12:10] VITALS: BP 119/86; PULSE 89; RESP 18; TEMP 36.7; O2SAT 98
== END 2023-03-07 15:46 | disposition home or self-care (01) | DRG 784 ==
LOC: BCD 21:31 → OBS 21:36
PROVIDERS: Admitting Provider Obstetrics & Gynecology; PCP Nurse Practitioner; Visit Provider Obstetrics & Gynecology
PROC: (CPT 59514; principal; 2023-03-04 22:40)
PROC: (CPT 58605; 2023-03-04 22:40)
DX: O34.211 Maternal care for low transverse scar from previous cesarean delivery (principal); F11.20 Opioid dependence, uncomplicated; O99.354 Diseases of the nervous system complicating childbirth; Z37.0 Single live birth; Z3A.38 38 weeks gestation of pregnancy; F98.8 Other specified behavioral and emotional disorders with onset usually occurring in childhood and adolescence; O99.324 Drug use complicating childbirth; R76.8 Other specified abnormal immunological findings in serum; Z86.19 Personal history of other infectious and parasitic diseases; O99.814 Abnormal glucose complicating childbirth; N85.8 Other specified noninflammatory disorders of uterus; O99.344 Other mental disorders complicating childbirth; F41.8 Other specified anxiety disorders; O99.334 Smoking (tobacco) complicating childbirth; F17.210 Nicotine dependence, cigarettes, uncomplicated; F12.90 Cannabis use, unspecified, uncomplicated; G56.03 Carpal tunnel syndrome, bilateral upper limbs; F43.10 Post-traumatic stress disorder, unspecified; O99.284 Endocrine, nutritional and metabolic diseases complicating childbirth; E28.2 Polycystic ovarian syndrome; J45.909 Unspecified asthma, uncomplicated; O99.52 Diseases of the respiratory system complicating childbirth
CPT/HCPCS: 59514; 58700; 36415; 85027; 86850; 86900; 86901; 87635; 96365; 96367; 96368; 85025; 88302; 88307; J0131; J0456; J0690; J1170; J1200; J1885; J2371; J2405; J2590; J2704; J3010; J3490

== ENCOUNTER 2023-07-22 10:40 | Day surgery (SDC) | payer MEDICAID, SELFPAY ==
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
[2023-07-22 11:01] VITALS: BMI 34.4
[2023-07-22 11:12] VITALS: BP 121/83; PULSE 89; RESP 16; TEMP 36.4; O2SAT 99
[2023-07-22] MEDS: Lactated Ringers 1,000 ML 80 ML IV (11:21)
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
[2023-07-22] MEDS: ceFAZolin 2 GM/50 ML BAG IVPB (11:48)
[2023-07-22] MEDS: Lidocaine 1% Multi-Dose W/EPI 1/100,000 50 ML VIAL (11:59)
[2023-07-22 12:14] VITALS: BP 108/65; PULSE 98; RESP 20; TEMP 37; O2SAT 98
--- NOTE | 2023-07-22 12:17 | PDOC.DSDIS_ITS ---
Date of service: 07/22/23 Time of Service: 12:17 Discharge Plan Disposition Patient Disposition: Home Condition: Good Discharge Details Reason For Visit: R ECTR Attending Provider: Antonio Arreguin Primary Care Provider: Raya Morse Home Meds and New Rx's Prescriptions: New hydrocodone-acetaminophen 5-325 mg tablet 1 tab PO Q6H PRN (Reason: pain) Qty: 6 0RF acetaminophen 500 mg tablet 1,000 mg PO TID Qty: 90 0RF ibuprofen 600 mg tablet 600 mg PO TID PRN (Reason: pain) Qty: 90 0RF Continued ascorbate calcium (vitamin C) 500 mg tablet 500 mg PO DAILY Qty: 90 3RF Multiple Vitamin-Minerals Tablet 1 tab PO DAILY Qty: 90 3RF vitamin A 2,400 mcg capsule 2,400 mcg PO DAILY Qty: 90 3RF vitamin E (dl, acetate) 45 mg (100 unit) capsule 45 mg PO DAILY Qty: 90 3RF cholecalciferol (vitamin D3) 125 mcg (5,000 unit) tablet 125 mcg PO DAILY Qty: 90 3RF dextroamphetamine-amphetamine 20 mg tablet 20 mg PO TID MDD 60mg Qty: 84 0RF Rx Instructions: administer doses at least 4-6 hours apart buprenorphine-naloxone 8-2 mg film 1 film SL DAILY Qty: 28 2RF diphenhydramine HCl [Benadryl] 25 mg capsule 25 mg PO QHS PRN acyclovir 400 mg tablet See Rx Instructions .ROUTE .COMPLEX Qty: 180 1RF Dose Instruction: TAKE ONE TABLET BY MOUTH TWICE A DAY Rx Instructions: TAKE ONE TABLET BY MOUTH TWICE A DAY clindamycin phosphate 1 % lotion See Rx Instructions .ROUTE .COMPLEX Qty: 60 1RF Dose Instruction: APPLY TOPICALLY EVERYDAY AT BEDTIME FOR ACNE Rx Instructions: APPLY TOPICALLY EVERYDAY AT BEDTIME FOR ACNE triamcinolone acetonide 0.1 % cream See Rx Instructions .ROUTE .COMPLEX Qty: 80 3RF Dose Instruction: APPLY TOPICALLY TO HANDS TWO TIMES A DAY NEEDED FOR ECZEMA Rx Instructions: APPLY TOPICALLY TO HANDS TWO TIMES A DAY NEEDED FOR ECZEMA omega 2-zuz-dxd-fish oil [Fish Oil] 60-90-500 mg capsule See Rx Instructions .ROUTE .COMPLEX Qty: 180 3RF Dose Instruction: TAKE TWO CAPSULES BY MOUTH EVERY DAY Rx Instructions: TAKE TWO CAPSULES BY MOUTH EVERY DAY vitamin B complex-folic acid 0.4 mg tablet See Rx Instructions .ROUTE .COMPLEX Qty: 90 3RF Dose Instruction: TAKE ONE TABLET BY MOUTH EVERY DAY Rx Instructions: TAKE ONE TABLET BY MOUTH EVERY DAY M- Plus 27 mg iron- 1 mg tablet See Rx Instructions .ROUTE .COMPLEX Qty: 100 3RF Dose Instruction: TAKE ONE TABLET BY MOUTH EVERY DAY Rx Instructions: TAKE ONE TABLET BY MOUTH EVERY DAY Discharge Instructions Stand Alone Forms: Kallie Wasserman Tunnel Release Referrals: Antonio Arreguin MD [ [facility] STAFF PHYSICIAN] - Activity:: Activity as Tolerated Remove Dressings/Wound Care:: 48 hours Shower/Bathe:: 48 hours Diet:: As Tolerated Discharge Orders Discharge Orders: Discharge Order (Routine); Ordered 07/22/23 Ordered By: Galen Rodriguez DS: Diagnosis Discharge Diagnosis (1) Right carpal tunnel syndrome: Status: Acute
--- NOTE | 2023-07-22 12:18 | W.ANESPOSTOP ---
Postoperative Evaluation Date, Time and Location Date Performed: 07/22/23 Time Performed: 12:18 Patient Location: Day Surgery Unit Vital Signs Most Recent Imported Vital Signs: Most Recent Vital Signs Temp Pulse Resp BP Pulse Ox 37.0 C 98 H 20 108/65 98 07/22/23 12:14 07/22/23 12:14 07/22/23 12:14 07/22/23 12:14 07/22/23 12:14 Pain Score Most Recent Pain Score: Most Recent Pain Score Pain Level 0 07/22/23 12:14 Assessment Mental Status: Awake (Alert & Oriented to Patient Baseline) Airway and Respiratory Function: Patent airway with normal (patient baseline) respiratory exam Cardiovascular Function: Hemodynamically Stable Hydration Status: Adequately Hydrated Nausea & Vomiting: No Nausea or Vomiting Pain: Pt. Denies Any Pain Peripheral Nerve Block: Patient did not receive a nerve block
[2023-07-22 12:45] VITALS: BP 91/66; PULSE 63; RESP 18; TEMP 36.6; O2SAT 99
--- NOTE | 2023-07-22 15:36 | W.PM.OP ---
Date of service: 07/22/23 Time of Service: 12:00 Operative Note Operative Note DATE OF PROCEDURE: 07/22/23 PRE-OP DIAGNOSIS: Right Carpal Tunnel Syndrome POST-OP DIAGNOSIS: same PROCEDURE: Right Endoscopic Carpal Tunnel Release SURGEON: Antonio Arreguin ANESTHESIA TYPE: General:No Airway Refer to Anesthesia Record ESTIMATED BLOOD LOSS: 0 PATHOLOGY: none sent TOURNIQUET TIME: 5 COMPLICATIONS: None Patient was transported to: same day Patient's condition: stable Indications: I have seen Heather in clinic for symptoms of carpal tunnel syndrome. The numbness, tingling, and pain limited function. Clinical exam findings confirmed the diagnosis of carpal tunnel syndrome. Nonoperative measures such as bracing, time, activity modifications had been tried but disability and pain persisted. I discussed carpal tunnel release with the patient. I reviewed the risks of the procedure to include, but not limited to, bleeding, infection, pain, stiffness, incomplete release, damage to nerves or vessels, persistent numbness, recurrence. Despite these risks, the patient elected to proceed. Findings: There was tightened carpal tunnel. This was dilated and released successfully with the endoscopic with increased space within the tunnel. The antebrachial fascia was released proximally freeing the median nerve at the wrist. Procedure Description: Minnie was greeted in the preoperative holding area where the correct side was identified and marked. The consent was reviewed with the patient and signed. The history and physical was updated. All questions were answered. She was taken back to the operating room. The patient was placed into the supine position on the operating room table with the right arm on an arm board. A nonsterile tourniquet was placed high onto the arm. All bony prominences were well padded. Prophylactic antibiotics in the form of Cefazolin were administered. The right arm was then prepped with Chloraprep and draped in a standard fashion with stockinette and extremity drape. A timeout to confirm correct identity, side and site, procedure, allergies, anesthesia, and medical concerns was performed. The surgical site was marked in the volar wrist creases in line with the radial border of the fourth ray. This area was anesthetized with approximately 6cc of 1% Lidocaine. The limb was then exsanguinated with an Esmarch. The skin was incised with a 15 blade, approximately 1cm. The skin only was cut and the deeper tissue was dissected bluntly with a tenotomy scissor, avoiding passing nerve and venous structures. The fascia was penetrated and opened bluntly. A two-prong skin hook was placed under this proximal fascial edge. A series of hamate finders were used to identify and dilate the carpal tunnel. Synovial elevator was used to free synovial attachments to the underside of the transverse carpal ligament. My thumb was kept in the palm to anthony the distal extent of the carpal tunnel and correctly position the hand. The Microaire endoscope was inserted without difficulty and without resistance. Excellent visualization showed horizontally running fibers of the transverse carpal ligament (TCL). The distal extent of the TCL was visualized and the end of the scope palpated with the thumb. The blade was elevated and withdrawn from distal to proximal. The TCL was split into two flaps. The endoscope was reinserted to confirm complete release and any remnant ligament was incised. The scope was withdrawn and the proximal aspect of the carpal tunnel was grossly inspected and appeared release with the median nerve visible. The antebrachial fascia at the level of the wrist was then freed from the overlying skin and then the underlying median nerve with blunt dissection. This was transected longitudinally for about 3cm proximal to the wrist incision. The wound was then irrigated with easy flow of irrigant distally and proximally. The incision was closed with a single 4-0 Nylon suture. The wound was dressed with Xeroform, Gauze, Kerlix and Nelson. The tourniquet was deflated with the initial dressing and held with some pressure. Blood flow returned easily to all digits with capillary refill less than 2 seconds. The patient tolerated the procedure well and was returned to the Same Day Surgery area in a stable condition suffering no known complication.
== END 2023-07-22 13:10 | disposition home or self-care (01) ==
PROVIDERS: PCP Nurse Practitioner; Visit Provider Student in an Organized Health Care Education/Training Program
PROC: 01N54ZZ Release Median Nerve, Percutaneous Endoscopic Approach (ICD-10-PCS; CPT 29848; principal; 2023-07-22 13:00)
DX: G56.01 Carpal tunnel syndrome, right upper limb (principal)
CPT/HCPCS: 29848; 81025; J0690; J1100; J1885; J2001; J2004; J2405; J2704

== ENCOUNTER → 2023-08-07 01:46 | Outpatient (CLI) | payer MEDICAID, SELFPAY ==
--- NOTE | 2023-08-07 06:30 | DI.US_ITS ---
Exam(s) US ABDOMEN LIMITED EXAM: US ABDOMEN LIMITED CLINICAL HISTORY: worse after eating fatty foods,RUQ PAIN,R10.11 TECHNIQUE: Ultrasound abdomen performed using standard protocol. COMPARISON: CT ABD WO, ABD/PELVIS W from 08/18/2011 FINDINGS: LIVER: Normal size and echogenicity. No focal liver lesions are seen. GALLBLADDER: No evidence of cholelithiasis. Gallbladder somewhat contracted. Question of mild wall t hickening. No pericholecystic fluid identified. LOCKE'S SIGN: Tender in right upper quadrant. BILIARY SYSTEM: No intrahepatic or extrahepatic biliary ductal dilation. KIDNEYS: Kidneys are symmetric in size. No evidence of renal calculi. No evidence of hydronephrosis. No renal mass or cyst identified. PANCREAS: Normal where visualized. SPLEEN: Not enlarged. ABDOMINAL AORTA AND IVC: Visualized portions normal caliber. ASCITES: None seen. IMPRESSION: Mild gallbladder wall thickening however the gallbladder is not well distended. No evidence of sheri lithiasis or biliary dilatation. DATA REPOSITORY:
== END ==
PROVIDERS: PCP Nurse Practitioner; Visit Provider Nurse Practitioner
DX: R10.11 Right upper quadrant pain (principal)
CPT/HCPCS: 76705

== ENCOUNTER → 2023-10-14 04:39 | Outpatient (CLI) | payer MEDICAID, SELFPAY ==
--- NOTE | 2023-10-14 06:30 | DI.NM_ITS ---
Exam(s) NM HEPATOBILIARY CCK GRP EXAM: NM HEPATOBILIARY CCK GRP CLINICAL HISTORY: Postprandial abd pain without gallstones,R10.9. TECHNIQUE: Injected dose: 4.8 mCi Tc-99 mebrofenin Initial dynamic images: 60 minutes Post-Gallbladder fillin.02 mcg/kg CCK intravenously over a 15min infusion. Addition images: 20 minute dynamic during CCK administration. COMPARISON: Recent ultrasound reviewed FINDINGS: There is normal uptake and excretion of radiopharmaceutical by the liver and activity is seen within the gallbladder lumen starting at 4 minute post injection. The CBD is not dilated nor occluded, with radiopharmaceutical tibia seen extending down the nondilated CBD into the duodenal C-loop and proxim al jejunal loops. In response to CCK infusion there is a normal gallbladder ejection fraction of 86 percent demonstrate d IMPRESSION: 1. No evidence of obstruction of the cystic duct (no evidence of acute cholecystitis). 2. No evidence of gallbladder dysfunction. Gallbladder ejection fraction is 86 percent in response t o CCK infusion. SN guidelines: Gallbladder visualization should be present by 3 hours. Delayed [id number]-wtfus guallpa sit beyond 60 min raises the suspicion for partial common bile duct (CBD) obstruction. Gallbladder ejection fraction <35% has a good correlation with acalculous disease (i.e., chronic acal culous cholecystitis, cystic duct syndrome, sphincter of Oddi disease).
== END ==
PROVIDERS: PCP Nurse Practitioner; Visit Provider Surgery
DX: R10.9 Unspecified abdominal pain (principal)
CPT/HCPCS: 78227

== ENCOUNTER 2024-08-08 15:48 | Outpatient (REF) | payer MEDICAID, SELFPAY | END 2024-08-08 15:49 | disposition home or self-care (01) | LOC: LBN 15:48 | PROVIDERS: PCP Nurse Practitioner; Visit Provider Nurse Practitioner | DX: M79.3 Panniculitis, unspecified (principal) | CPT/HCPCS: 87077; 87070; 87186; 87205 ==

== ENCOUNTER 2024-08-16 11:46 | Outpatient (RCR) | payer MEDICAID, SELFPAY ==
[2024-08-16] MEDS: Normal Saline Flush 5 ML SYR IVP (13:26)
[2024-08-16] MEDS: DALBAVANCIN 1,500 MG in DEXTROSE 5%-WATER 325 ML 650 MG IVPB (13:26)
== END 2024-08-22 23:59 | disposition home or self-care (01) ==
LOC: INF 11:46
PROVIDERS: PCP Nurse Practitioner; Visit Provider Family Medicine
DX: A49.02 Methicillin resistant Staphylococcus aureus infection, unspecified site (principal)
CPT/HCPCS: 96365; J0875

== ENCOUNTER 2025-01-25 18:18 | Outpatient (REF) | payer MEDICAID, SELFPAY ==
[2025-01-25 21:12] LABS: Abs Immature Grans 0.01 10^3/uL (0.0-0.06); HCT 42.5 % (36.0-46.0); HGB 14.1 g/dL (11.2-15.7); Immature Grans % 0.1 %; MCH 30.8 pg (27.0-33.0); MCHC 33.2 % (32.0-36.0); MCV 93 fL (80-95); MPV 8.6 fL (8.0-11.0); Platelet Count 373 10^3/uL (130-400); RBC 4.58 10^6/uL (3.93-5.22); RDW 12.3 % (11.7-14.6); RDW-SD 42.3 fL; WBC 8.64 10^3/uL (4.4-10.8)
[2025-01-25 21:44] LABS: TSH (W/Ref FT4) 1.29 uIU/mL (0.36-3.74)
[2025-01-27 11:01] LABS: Lyme Ab w Rflx to Lyme Confirm Negative (Negative)
== END 2025-01-25 18:19 | disposition home or self-care (01) ==
LOC: LBN 18:18
PROVIDERS: PCP Nurse Practitioner; Visit Provider Physician Assistant Medical
DX: L02.91 Cutaneous abscess, unspecified (principal); R53.83 Other fatigue
CPT/HCPCS: 84443; 85025; 86618; 87070; 87205

== ENCOUNTER 2025-02-20 02:55 | Outpatient (CLI) | payer MEDICAID, SELFPAY ==
--- NOTE | 2025-02-20 | DI.US_ITS ---
Exam(s) US THYROID EXAM: US THYROID CLINICAL HISTORY: LUMP OF SKIN R22.9. TECHNIQUE: Ultrasound thyroid performed using standard protocol. COMPARISON: US US SOFT TISSUE HEAD OR NECK from 02/20/2025 FINDINGS: Both thyroid lobes exhibit normal size and homogeneous echotexture. There are no thyroid nodules. RIGHT THYROID LOBE: Measures 1.2 cm AP x 1.6 cm wide x 3.8 cm craniocaudal No nodules ISTHMUS: Normal thickness. There are no nodules in the isthmus. LYMPH NODES: There is no significant adenopathy. IMPRESSION: 1. Normal appearing thyroid gland. Normal size. No nodules. 2. There is no significant lymphadenopathy. DATA REPOSITORY:
--- NOTE | 2025-02-20 | DI.US_ITS ---
Exam(s) US SOFT TISSUE HEAD OR NECK EXAM: US SOFT TISSUE HEAD OR NECK CLINICAL HISTORY: LUMP SKIN R22.9. TECHNIQUE: Ultrasound was performed using standard protocol. COMPARISON: US US ABDOMEN LIMITED from 08/07/2023 FINDINGS: Became ultrasound examination of the area of concern in the right submental region was performed. There are 2 small benign-appearing lymph nodes in this region, with the larger measuring 5 x 5 x 5 mm. Lower down in the right-side of the neck there are normal appearing jugular chain lymph nodes. IMPRESSION: There is a 5 x 5 x 5 mm finding in the right submental region corresponding to what this patient is feeling. Although this is probably a benign lymph node, patient informs me today that this palpable finding increases and decreases in size and that it is now decreased in size. Informed her to return when it increases in size as the examination may healed more information at that time. DATA REPOSITORY:
== END 2025-02-20 03:15 ==
LOC: DI 02:55
PROVIDERS: PCP Family Medicine; Visit Provider Physician Assistant Medical
DX: R22.1 Localized swelling, mass and lump, neck (principal)
CPT/HCPCS: 76536